=== PATIENT | male | born 2000 | race Two or more races ===

== ENCOUNTER 2023-01-16 01:52 | Emergency (ER) | payer SELFPAY ==
[~2023-01-16] VITALS: Ht 175.3 cm; Wt 66.7 kg
== END 2023-01-16 06:43 | disposition home or self-care (01) ==
LOC: ER 01:59
DX: S02.2XXA Fracture of nasal bones, initial encounter for closed fracture (principal); R42 Dizziness and giddiness; Y04.0XXA Assault by unarmed brawl or fight, initial encounter; Y92.89 Other specified places as the place of occurrence of the external cause
CPT/HCPCS: 70450; 70486; 99283